=== PATIENT | female | born 1995 | race Hispanic/Latino ===

== ENCOUNTER 2023-09-18 18:42 | Emergency (ER) | payer OTHER, BC, SELFPAY ==
[2023-09-18 19:13] VITALS: BP 135/76; PULSE 79; RESP 18; TEMP 36.8; O2SAT 100
[2023-09-18 22:17] VITALS: BP 140/70; PULSE 80; RESP 18; TEMP 36.7; O2SAT 99
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
== END 2023-09-18 22:19 | disposition home or self-care (01) ==
LOC: ANHED 22:11
PROVIDERS: Emergency Provider Emergency Medicine
DX: S39.012A Strain of muscle, fascia and tendon of lower back, initial encounter (principal); V89.2XXA Person injured in unspecified motor-vehicle accident, traffic, initial encounter
CPT/HCPCS: 99283